=== PATIENT | female | born 1965 | race African-American/Black ===

== ENCOUNTER 2018-04-29 08:46 | Emergency (ER) | payer BC, MEDICAID ==
[~2018-04-29] VITALS: Ht 149.9 cm; Wt 55.0 kg
[2018-04-29] MEDS ORDERED: SODIUM CHLORIDE 0.9% 1,000 ML IV ONE (09:46)
[2018-04-29 10:03] LABS: BASOPHILS % 0.2 % (0.0-2.0); EOSINOPHILS % 0.6 % (0.0-5.0); HEMOGLOBIN. 15.3 g/dL (12.0-16.0); MEAN CORPUSCULAR HEMOGLOBIN 34.9 pg (28.0-32.0); MEAN CORPUSCULAR VOLUME 102.5 fL (81.0-99.0); MEAN PLATELET VOLUME 7.9 fl (7.4-10.4); MONOCYTES % 7.8 % (2.0-8.0); NEUTROPHILS % 72.4 % (40.0-76.0); PLATELET 329 x1000/uL (130-400); RED BLOOD CELL COUNT 4.39 mill/uL (4.2-5.4)
[2018-04-29 10:11] LABS: CHLORIDE 98 mEq/L (98-107)
[2018-04-29 10:17] LABS: ETHANOL BLOOD < 10 mg/dL
[2018-04-29] MEDS ORDERED: POTASSIUM CHLORIDE 20MEQ TABLET SR PO ONE (10:30)
[2018-04-29 10:36] LABS: CLARITY URINE CLOUDY (CLEAR); COLOR URINE YELLOW (YELLOW); KETONES URINE 1+ (NEGATIVE); LEUKOCYTE ESTERASE URINE NEGATIVE (NEGATIVE); NITRITE URINE NEGATIVE (NEGATIVE); OCCULT BLOOD URINE NEGATIVE (NEGATIVE); PH URINE 5.5 (4.5-8.0); PROTEIN URINE NEGATIVE (NEGATIVE); SPECIFIC GRAVITY URINE 1.016 (1.005-1.030)
[2018-04-29 10:43] LABS: HCG SCREEN INDETERMINATE
[2018-04-29 14:13] VITALS: BP 120/82
== END 2018-04-29 14:27 | disposition home or self-care (01) ==
LOC: ER 08:55
DX: I10 Essential (primary) hypertension (principal); E86.0 Dehydration; R94.5 Abnormal results of liver function studies; E87.6 Hypokalemia; F10.20 Alcohol dependence, uncomplicated; Y90.0 Blood alcohol level of less than 20 mg/100 ml
CPT/HCPCS: 36415; 70450; 71045; 80053; 81003; 81025; 83605; 83690; 83735; 83880; 84443; 84484; 84702; 84703; 85025; 85379; 93005; 96360; 99284; G0482; J7030

== ENCOUNTER 2019-02-09 07:16 | Emergency (ER) | payer SELFPAY ==
[~2019-02-09] VITALS: Ht 162.6 cm; Wt 59.0 kg
[2019-02-09] MEDS ORDERED: SODIUM CHLORIDE 0.9% 1,000 ML IV ONE (07:49)
[2019-02-09 08:11] LABS: BASOPHILS % 0.1 % (0.0-2.0); EOSINOPHILS % 0.5 % (0.0-5.0); HEMATOCRIT. 41.7 % (36.0-48.0); HEMOGLOBIN. 14.3 g/dL (12.0-16.0); LYMPHOCYTES % 27.3 % (20.0-50.0); MEAN CORPUSCULAR HEMOGLOBIN 35.4 pg (28.0-32.0); MEAN CORPUSCULAR VOLUME 103.3 fL (81.0-99.0); MEAN PLATELET VOLUME 7.3 fl (7.4-10.4); MONOCYTES % 4.1 % (2.0-8.0); PLATELET 315 x1000/uL (130-400); RED BLOOD CELL COUNT 4.04 mill/uL (4.2-5.4); RED CELL DISTRIBUTION WIDTH 13.1 % (11.6-14.6)
[2019-02-09 08:12] LABS: CHLORIDE 108 mEq/L (98-107)
[2019-02-09 08:35] LABS: HCG SCREEN INDETERMINATE
[2019-02-09 08:58] LABS: ETHANOL BLOOD 374 mg/dL
[2019-02-09 09:10] LABS: CLARITY URINE CLEAR (CLEAR); COLOR URINE YELLOW (YELLOW); KETONES URINE NEGATIVE (NEGATIVE); LEUKOCYTE ESTERASE URINE NEGATIVE (NEGATIVE); NITRITE URINE NEGATIVE (NEGATIVE); OCCULT BLOOD URINE NEGATIVE (NEGATIVE); PROTEIN URINE NEGATIVE (NEGATIVE); SPECIFIC GRAVITY URINE 1.004 (1.005-1.030); UROBILINOGEN URINE 0.2 E.U./dL (0.2-1.0)
[2019-02-09 09:29] LABS: *AMPHETAMINES SCREEN URINE NEGATIVE (NEGATIVE); *BARBITURATES SCREEN URINE NEGATIVE (NEGATIVE); *BENZODIAZEPINES SCREEN URINE NEGATIVE (NEGATIVE); *COCAINE SCREEN URINE NEGATIVE (NEGATIVE); METHADONE URINE SCREEN NEGATIVE (NEGATIVE)
[2019-02-09 09:30] LABS: CANNABINOID URINE SCREEN PRESUMTIVE POSITIVE (NEGATIVE); OPIATES URINE SCREEN NEGATIVE (NEGATIVE); PHENCYCLIDINE URINE SCREEN NEGATIVE (NEGATIVE)
[2019-02-09 12:01] VITALS: BP 131/78
== END 2019-02-09 12:01 | disposition home or self-care (01) ==
LOC: ER 07:20
DX: F10.129 Alcohol abuse with intoxication, unspecified (principal); F32.9 Major depressive disorder, single episode, unspecified; F12.10 Cannabis abuse, uncomplicated; Z98.890 Other specified postprocedural states; Y90.8 Blood alcohol level of 240 mg/100 ml or more
CPT/HCPCS: 36415; 80053; 80305; 80307; 80320; 80329; 81003; 84703; 85025; 99283; J7030; G0480